=== PATIENT | female | born 1980 | race Caucasian/White ===

== ENCOUNTER → 2016-11-03 | Outpatient (REF) | payer OTHER ==
[2016-11-03 12:28] LABS: THYROID PEROXIDASE ANTIBODY 28.2 U/ML (<60.0)
[2016-11-03 12:32] LABS: ALBUMIN 3.2 GM/DL (3.2-5.2); ALBUMIN/GLOBULIN RATIO 0.82 (1.00-1.93); ALKALINE PHOSPHATASE 89 U/L (45-117); ALT/SGPT 24 U/L (12-78); ANION GAP 8 MEQ/L (8-16); AST/SGOT 21 U/L (15-37); BILIRUBIN,TOTAL 0.3 MG/DL (0.2-1.0); BLOOD UREA NITROGEN 12 MG/DL (7-18); CALCIUM LEVEL 8.4 MG/DL (8.5-10.1); CARBON DIOXIDE LEVEL 25 MEQ/L (21-32); CHLORIDE LEVEL 109 MEQ/L (98-107); CHOLESTEROL LEVEL 202 MG/DL (<200); CREATININE FOR GFR 0.83 MG/DL (0.55-1.02); GLOMERULAR FILTRATION RATE > 60.0 (>60); GLUCOSE, FASTING 89 MG/DL (70-105); POTASSIUM SERUM 4.3 MEQ/L (3.5-5.1); SODIUM LEVEL 142 MEQ/L (136-145); THYROXINE (T4) 11.5 UG/DL (4.5-12.0); TOTAL PROTEIN 7.1 GM/DL (6.4-8.2); TRIGLYCERIDES LEVEL 144 MG/DL (<150)
== END ==
LOC: M SFHCCLAY 08:12
PROVIDERS: ATTEND Family Medicine
DX: E78.2 Mixed hyperlipidemia (principal); R73.01 Impaired fasting glucose; E01.0 Iodine-deficiency related diffuse (endemic) goiter

== ENCOUNTER → 2016-11-07 | Outpatient (CLI) | payer OTHER ==
--- NOTE | 2016-11-07 16:25 | REP ---
THYROID ULTRASOUND: Real-time sonographic evaluation of the thyroid is performed. Right lobe measures 4.2 x 1.4 x 1.2 cm and left lobe 4.2 x 1.9 x 1.2 cm. There is a 2 mm cyst in the midright lobe and a 2 mm cyst in the upper left lobe. Incidental note is made of a slightly enlarged lymph node in the right side of the neck. Soft tissues, measuring 1.7 x 1.2 x 1.2 cm. There is also mildly prominent lymph node in the left soft tissues 2.2 x 1.0 x 2.0 cm. Other smaller adjacent lymph nodes are seen bilaterally. IMPRESSION: Essentially unremarkable thyroid ultrasound with no significant enlargement. Mildly prominent lymph nodes in the neck soft-tissues bilaterally. Further evaluation may be made with a CT of the soft-tissues of the neck with IV contrast if clinically indicated. Signed by Jose Padilla MD 11/07/2016 04:50 P
== END ==
LOC: M RAD 15:05
PROVIDERS: ATTEND Family Medicine
DX: E01.0 Iodine-deficiency related diffuse (endemic) goiter (principal)

== ENCOUNTER → 2018-04-08 | Outpatient (REF) | payer OTHER ==
[2018-04-09 12:18] LABS: ALBUMIN 3.2 GM/DL (3.2-5.2); ALBUMIN/GLOBULIN RATIO 0.76 (1.00-1.93); ALKALINE PHOSPHATASE 82 U/L (45-117); ALT/SGPT 19 U/L (12-78); ANION GAP 8 MEQ/L (8-16); AST/SGOT 21 U/L (7-37); BILIRUBIN,TOTAL 0.2 MG/DL (0.2-1.0); BLOOD UREA NITROGEN 11 MG/DL (7-18); CALCIUM LEVEL 9.1 MG/DL (8.5-10.1); CARBON DIOXIDE LEVEL 22 MEQ/L (21-32); CHLORIDE LEVEL 109 MEQ/L (98-107); CHOLESTEROL LEVEL 183 MG/DL (<200); CHOLESTEROL RISK RATIO 3.388 (<5); GLOMERULAR FILTRATION RATE > 60.0 (>60); GLUCOSE, FASTING 73 MG/DL (70-100); HDL CHOLESTEROL 54 MG/DL (>40); LDL CHOLESTEROL 106.6 MG/DL (<100); NON-HDL-C 129 MG/DL; SODIUM LEVEL 139 MEQ/L (136-145); TOTAL PROTEIN 7.4 GM/DL (6.4-8.2); TRIGLYCERIDES LEVEL 112 MG/DL (<150)
[2018-04-09 12:23] LABS: POTASSIUM SERUM 8.3 MEQ/L (3.5-5.1)
[2018-04-09 15:11] LABS: ESTIMATED AVERAGE GLUCOSE 108 MG/DL (60-110); HEMOGLOBIN A1c 5.4 %
== END ==
LOC: M SFHCCLAY 14:45
DX: E78.2 Mixed hyperlipidemia (principal); R73.01 Impaired fasting glucose

== ENCOUNTER → 2018-08-03 | Outpatient (REF) | payer OTHER ==
[2018-08-06 00:40] LABS: HPV HYBRID CAPTURE II Negative (Negative)
== END ==
LOC: M LAB REF 17:13
PROVIDERS: ATTEND Advanced Practice Midwife
DX: Z12.4 Encounter for screening for malignant neoplasm of cervix (principal)

== ENCOUNTER → 2019-08-31 | Outpatient (REF) | payer OTHER | LOC: M SFHCWAGY 10:27 | PROVIDERS: ATTEND Advanced Practice Midwife | DX: Z12.4 Encounter for screening for malignant neoplasm of cervix (principal) ==

== ENCOUNTER → 2019-11-29 | Outpatient (REF) | payer OTHER | LOC: M LAB REF 16:58 | PROVIDERS: ATTEND Family Medicine | DX: R19.7 Diarrhea, unspecified (principal) ==

== ENCOUNTER 2019-12-02 14:15 | Inpatient (IN) | payer OTHER ==
[~2019-12-02] VITALS: Ht 152.4 cm; Wt 79.9 kg
[2019-12-02] MEDS ORDERED: NS 1,000 ML IV ONE (14:45)
[2019-12-02] MEDS ORDERED: PIPERACILLIN/TAZOBACTAM SOD 4.5 GM in D5W MINI-BAG PLUS 50 ML IV ONE (14:45)
[2019-12-02 15:23] LABS: BASO % 0.3 % (0.0-1.0); EOS % 0.1 % (0.0-3.0); HEMATOCRIT 41.3 % (36.0-47.0); HEMOGLOBIN 13.8 g/dl (12.0-15.5); LYMPH # 1.8 10^3/uL (1.5-5.0); LYMPH % 11.5 % (24.0-44.0); MEAN CORPUSCULAR HEMOGLOBIN 28.2 pg (27.0-33.0); MEAN CORPUSCULAR HGB CONC 33.4 g/dl (32.0-36.5); MEAN CORPUSCULAR VOLUME 84.5 fl (80.0-96.0); MONO % 6.7 % (0.0-5.0); NEUTROPHILS # 12.5 10^3/uL (1.5-8.5); PLATELET COUNT, AUTOMATED 405 10^3/uL (150-450); RED BLOOD COUNT 4.89 10^6/uL (4.00-5.40); WHITE BLOOD COUNT 15.4 10^3/uL (4.0-10.0)
[2019-12-02] MEDS ORDERED: CYCL5TAB PO (15:32)
[2019-12-02] MEDS ORDERED: FLON1SPR NARES (15:32)
[2019-12-02] MEDS ORDERED: ALBU8.5H INH (15:32)
[2019-12-02] MEDS ORDERED: MONT10TA4 PO (15:32)
[2019-12-02] MEDS ORDERED: LEVOTAB18 PO (15:32)
[2019-12-02] MEDS ORDERED: ALLE180T33 PO (15:32)
[2019-12-02 15:35] LABS: INR 1.11
[2019-12-02 15:36] LABS: PARTIAL THROMBOPLASTIN TIME 28.8 SECONDS (25.0-38.4)
[2019-12-02 15:47] LABS: ALBUMIN 3.1 GM/DL (3.2-5.2); BILIRUBIN,DIRECT 0.2 MG/DL (0.0-0.2); BILIRUBIN,TOTAL 0.4 MG/DL (0.2-1.0); TOTAL PROTEIN 7.9 GM/DL (6.4-8.2)
[2019-12-02] MEDS ORDERED: NORCO, ANEXSIA 5/325MG TABLET (HYDROcodone/ACETAMINOPHEN) PO PRN (16:15)
[2019-12-02] MEDS ORDERED: ONDANSETRON 4MG/2ML VIAL (J2405 PER 1MG) IV PRN (16:15)
[2019-12-02] MEDS ORDERED: MORPHINE 2 MG/ML 1ML VIAL (J2270) IV PRN (16:15)
[2019-12-02] MEDS ORDERED: IPRATROPIUM 0.5MG/ALBUTEROL 2.5MG INH SOL UD 3ML (DUONEB)(J7620) NEB PRN (16:15)
[2019-12-02] MEDS ORDERED: ACETAMINOPHEN TAB 650MG DOSE (2X325MG) PO PRN (16:15)
[2019-12-02 17:27] VITALS: BP 140/92
[2019-12-02] MEDS: PANTOPRAZOLE 40MG VIAL (C9113 PER 1) IV SCH (17:47)
[2019-12-02] MEDS: D5W/LR 1,000 ML IV SCH (17:48)
[2019-12-02] MEDS: KETOROLAC 30 MG/ML 1ML VIAL (J1885 PER 15MG) IV SCH (17:48)
[2019-12-02] MEDS: CIPROFLOXACIN 400 MG in IV 1 EA IV SCH (17:50)
[2019-12-02] MEDS: metroNIDAZOLE 500 MG in IV 1 EA IV SCH (19:03)
[2019-12-02 22:00] VITALS: BP 131/74
[2019-12-02] MEDS: IPRATROPIUM 0.5MG/ALBUTEROL 2.5MG INH SOL UD 3ML (DUONEB)(J7620) NEB SCH (23:59)
[2019-12-03] MEDS: KETOROLAC 30 MG/ML 1ML VIAL (J1885 PER 15MG) IV SCH ×5 (00:22→18:15)
[2019-12-03] MEDS: IPRATROPIUM 0.5MG/ALBUTEROL 2.5MG INH SOL UD 3ML (DUONEB)(J7620) NEB SCH ×4 (01:28→20:00)
[2019-12-03 02:00] VITALS: BP 129/75
[2019-12-03] MEDS: metroNIDAZOLE 500 MG in IV 1 EA IV SCH ×3 (02:18→19:57)
[2019-12-03] MEDS: D5W/LR 1,000 ML IV SCH ×2 (05:37→08:50)
[2019-12-03] MEDS: CIPROFLOXACIN 400 MG in IV 1 EA IV SCH ×2 (05:37→18:14)
[2019-12-03 06:00] VITALS: BP 127/75
[2019-12-03] MEDS: PANTOPRAZOLE 40MG VIAL (C9113 PER 1) IV SCH (08:50)
[2019-12-03 09:41] LABS: HEMOGLOBIN 12.8 g/dl (12.0-15.5); MEAN CORPUSCULAR HEMOGLOBIN 28.3 pg (27.0-33.0); MEAN CORPUSCULAR HGB CONC 32.8 g/dl (32.0-36.5); MEAN CORPUSCULAR VOLUME 86.3 fl (80.0-96.0); PLATELET COUNT, AUTOMATED 366 10^3/uL (150-450); RED BLOOD COUNT 4.52 10^6/uL (4.00-5.40); WHITE BLOOD COUNT 8.7 10^3/uL (4.0-10.0)
[2019-12-03 09:58] LABS: BLOOD UREA NITROGEN 3 MG/DL (7-18); CALCIUM LEVEL 8.5 MG/DL (8.5-10.1); CARBON DIOXIDE LEVEL 29 MEQ/L (21-32); CHLORIDE LEVEL 106 MEQ/L (98-107); CREATININE FOR GFR 0.78 MG/DL (0.55-1.30); GLOMERULAR FILTRATION RATE > 60.0 (>58); GLUCOSE, FASTING 105 MG/DL (70-100); POTASSIUM SERUM 3.3 MEQ/L (3.5-5.1); SODIUM LEVEL 139 MEQ/L (136-145)
[2019-12-03 10:00] VITALS: BP 127/75
--- NOTE | 2019-12-03 13:56 | HPE ---
DATE OF ADMISSION: 12/02/2019 CHIEF COMPLAINT: Diverticulitis with question of diverticular abscess. BRIEF HISTORY OF PRESENT ILLNESS: The patient is a 39-year-old female, who has had chronic irritable bowel symptoms, has had increasing abdominal pain and diarrhea starting since about a week ago, was in to see her care provider and was ordered a CAT scan which showed a peridiverticular phlegmon/abscess. CT was evaluated here and did not reveal any abscess amenable to treatment. She had reportedly a normal white count as an outpatient. However, her white count on admission is 15.4. She is afebrile. She is not having any sepsis symptoms. No hypotension. She does not appear in any significant distress. PAST MEDICAL HISTORY: Significant for history of irritable bowel symptoms. No prior colonoscopy or upper endoscopy. History of asthma. History of environmental allergies. MEDICATIONS (include): - montelukast sodium - albuterol - Levonor - fexofenadine - fluconazole/ fructosazone/Flonase PHYSICAL EXAMINATION: Reveals a 39-year-old female, who looks stated age. HEENT is unremarkable. Neck: Supple without adenopathy. Lungs are clear to auscultation without crackles, wheezes or rhonchi. Heart is regular without murmur. Abdomen is soft, nondistended, mildly tender without any significant rebound or peritoneal signs. Extremities: Warm, well-perfused. She does have some mild left lower quadrant pain with palpation to deep palpation but no significant guarding or rebound symptoms are appreciated. No significant peritoneal signs are appreciated. IMPRESSION/PLAN: The patient has diverticulitis with an elevated white count and with evidence of peridiverticular phlegmon. At this point, it definitely does not appear to be an abscess or at least it appears to be much more a developing abscess or just a phlegmon that may resolve with antibiotic treatment alone. At this point, my recommendation is IV antibiotics, nothing by mouth overnight. We will see how she does and in the morning we may start her on some clear liquids depending on her symptoms. If she has decreasing white count, if she has decreasing pain, then I would like to start on a clear liquid diet and then we possibly may be able to advance her diet and discharge her to home over the next 24-48 hours. She understands our current plan and would like to continue with current plan at this time.
[2019-12-03 14:00] VITALS: BP 125/74
--- NOTE | 2019-12-03 14:05 | IPN ---
DATE: 12/03/2019 The patient seems to be doing well overnight. Has not had any significant pain or discomfort and overall seems to have had some bowel movements but seems a little bit more formed than it was previously. Overall feeling better than she was and at this time seems to be making some good progress. Seems much more comfortable, is not short of breath, etc., and the not complaining of any significant abdominal pain. Her temperature is very mildly above normal but no significant fever appreciated. Vital signs are stable and her white count has returned to normal. On her physical exam, abdomen soft, nontender and nondistended. IMPRESSION/PLAN: The patient has had some significant improvement with overnight antibiotics. I do feel that it is reasonable to continue with intravenous (IV) antibiotics at this time, give her a clear liquid diet and progress to a regular diet either later on today or tomorrow. If she is doing well, then discharge her home tomorrow with oral antibiotics and followup in the office. My recommendation is to have her proceed with a colonoscopy in approximately 4-6 weeks to rule out any other significant abnormality. However, obviously at this time if she has any fevers, increasing white count, pain and discomfort, we may need to proceed with a repeat CT scan.
[2019-12-03] MEDS: FEXOFENADINE 60 MG TAB PO SCH (15:26)
[2019-12-03] MEDS: FLUTICASONE PROP 0.05% NASAL SPRAY 16 GM (FLONASE) NARES SCH (15:27)
[2019-12-03] MEDS: MONTELUKAST 10 MG TAB PO SCH (15:27)
[2019-12-03 18:00] VITALS: BP 123/69
[2019-12-03] MEDS ORDERED: POTASSIUM CHLORIDE 10 MEQ SR TABLET PO ONE (19:45)
[2019-12-03 22:00] VITALS: BP 134/94
[2019-12-04] MEDS: IPRATROPIUM 0.5MG/ALBUTEROL 2.5MG INH SOL UD 3ML (DUONEB)(J7620) NEB SCH ×3 (01:29→13:11)
[2019-12-04 02:00] VITALS: BP 132/93
[2019-12-04] MEDS: metroNIDAZOLE 500 MG in IV 1 EA IV SCH (02:02)
[2019-12-04] MEDS: CIPROFLOXACIN 400 MG in IV 1 EA IV SCH (05:10)
[2019-12-04] MEDS: KETOROLAC 30 MG/ML 1ML VIAL (J1885 PER 15MG) IV SCH ×2 (05:10)
[2019-12-04 06:00] VITALS: BP 131/74
[2019-12-04 07:53] LABS: HEMATOCRIT 35.7 % (36.0-47.0); HEMOGLOBIN 11.6 g/dl (12.0-15.5); MEAN CORPUSCULAR HEMOGLOBIN 27.7 pg (27.0-33.0); MEAN CORPUSCULAR HGB CONC 32.5 g/dl (32.0-36.5); MEAN CORPUSCULAR VOLUME 85.2 fl (80.0-96.0); PLATELET COUNT, AUTOMATED 343 10^3/uL (150-450); RED BLOOD COUNT 4.19 10^6/uL (4.00-5.40); WHITE BLOOD COUNT 9.7 10^3/uL (4.0-10.0)
[2019-12-04 08:20] LABS: BLOOD UREA NITROGEN 3 MG/DL (7-18); CALCIUM LEVEL 8.1 MG/DL (8.5-10.1); CARBON DIOXIDE LEVEL 24 MEQ/L (21-32); CHLORIDE LEVEL 108 MEQ/L (98-107); CREATININE FOR GFR 0.71 MG/DL (0.55-1.30); GLOMERULAR FILTRATION RATE > 60.0 (>58); GLUCOSE, FASTING 95 MG/DL (70-100); POTASSIUM SERUM 3.8 MEQ/L (3.5-5.1); SODIUM LEVEL 138 MEQ/L (136-145)
[2019-12-04] MEDS: FLUTICASONE PROP 0.05% NASAL SPRAY 16 GM (FLONASE) NARES SCH (08:37)
[2019-12-04] MEDS: FEXOFENADINE 60 MG TAB PO SCH (08:37)
[2019-12-04] MEDS: PANTOPRAZOLE 40MG VIAL (C9113 PER 1) IV SCH (08:37)
[2019-12-04] MEDS: MONTELUKAST 10 MG TAB PO SCH (08:37)
[2019-12-04] MEDS ORDERED: CIPR500T3 PO (09:58)
[2019-12-04] MEDS ORDERED: METR-265 PO (09:58)
== END 2019-12-04 12:25 | disposition home or self-care (01) | DRG 392 ==
LOC: M ED 14:15 → M ED INP 16:04 → M MSPAV 17:36
PROVIDERS: ADMIT Surgery; ATTEND Surgery
DX: K57.30 Diverticulosis of large intestine without perforation or abscess without bleeding (principal)

== ENCOUNTER → 2019-12-20 | Outpatient (REF) | payer OTHER ==
[~2019-12-20] MED LIST: ALBU8.5H INH; ALLE180T33 PO; CIPR500T3 PO; CYCL5TAB PO; FLON1SPR NARES; LEVOTAB18 PO; METR-265 PO; MONT10TA4 PO
[2019-12-21 11:46] LABS: BASO # 0.1 10^3/uL (0.0-0.2); BASO % 0.5 % (0.0-1.0); EOS % 0.4 % (0.0-3.0); HEMATOCRIT 43.9 % (36.0-47.0); HEMOGLOBIN 14.3 g/dl (12.0-15.5); LYMPH % 18.7 % (24.0-44.0); MEAN CORPUSCULAR HGB CONC 32.6 g/dl (32.0-36.5); MEAN CORPUSCULAR VOLUME 85.9 fl (80.0-96.0); MONO # 0.6 10^3/uL (0.0-0.8); MONO % 5.9 % (0.0-5.0); NEUTROPHILS % 74.2 % (36.0-66.0); PLATELET COUNT, AUTOMATED 347 10^3/uL (150-450); RED BLOOD COUNT 5.11 10^6/uL (4.00-5.40); WHITE BLOOD COUNT 10.8 10^3/uL (4.0-10.0)
[2019-12-21 12:02] LABS: ALBUMIN 3.3 GM/DL (3.2-5.2); ALT/SGPT 252 U/L (12-78); BILIRUBIN,TOTAL 0.7 MG/DL (0.2-1.0); BLOOD UREA NITROGEN 5 MG/DL (7-18); C REACTIVE PROTEIN QUANTITATIV < 0.30 MG/DL (0.00-0.30); CARBON DIOXIDE LEVEL 26 MEQ/L (21-32); CHLORIDE LEVEL 105 MEQ/L (98-107); CREATININE FOR GFR 0.68 MG/DL (0.55-1.30); GLOMERULAR FILTRATION RATE > 60.0 (>58); GLUCOSE, FASTING 73 MG/DL (70-100); POTASSIUM SERUM 3.9 MEQ/L (3.5-5.1); SODIUM LEVEL 138 MEQ/L (136-145); TOTAL PROTEIN 7.2 GM/DL (6.4-8.2)
== END ==
LOC: M LABDRAWC 11:28
PROVIDERS: ATTEND Internal Medicine Gastroenterology
DX: R10.32 Left lower quadrant pain (principal); R19.7 Diarrhea, unspecified

== ENCOUNTER 2020-01-15 08:56 | Emergency (ER) | payer OTHER ==
[~2020-01-15] VITALS: Ht 152.4 cm; Wt 70.1 kg
[~2020-01-15 08:56] MED LIST changes: +MONT10TA10 PO; -MONT10TA4 PO; +MOTR200T44 PO; +TYLE325T5 PO
[2020-01-15] MEDS ORDERED: ISOVUE-370 76% 100ML VIAL As Ordered ONE (09:58)
[2020-01-15 10:01] LABS: BASO % 0.2 % (0.0-1.0); HEMATOCRIT 42.1 % (36.0-47.0); HEMOGLOBIN 13.6 g/dl (12.0-15.5); LYMPH % 11.9 % (24.0-44.0); MEAN CORPUSCULAR HEMOGLOBIN 27.5 pg (27.0-33.0); MEAN CORPUSCULAR HGB CONC 32.3 g/dl (32.0-36.5); MEAN CORPUSCULAR VOLUME 85.1 fl (80.0-96.0); MONO # 0.4 10^3/uL (0.0-0.8); MONO % 5.3 % (0.0-5.0); NEUTROPHILS # 6.9 10^3/uL (1.5-8.5); NEUTROPHILS % 82.2 % (36.0-66.0); PLATELET COUNT, AUTOMATED 229 10^3/uL (150-450); RED BLOOD COUNT 4.95 10^6/uL (4.00-5.40); WHITE BLOOD COUNT 8.4 10^3/uL (4.0-10.0)
[2020-01-15 10:26] LABS: ALBUMIN 3.2 GM/DL (3.2-5.2); ALT/SGPT 483 U/L (12-78); BILIRUBIN,DIRECT < 0.1 MG/DL (0.0-0.2); BILIRUBIN,TOTAL 0.9 MG/DL (0.2-1.0); LIPASE 102 U/L (73-393)
[2020-01-15 11:23] LABS: BLOOD UREA NITROGEN 3 MG/DL (7-18); CALCIUM LEVEL 8.7 MG/DL (8.5-10.1); CARBON DIOXIDE LEVEL 22 MEQ/L (21-32); CHLORIDE LEVEL 104 MEQ/L (98-107); CREATININE FOR GFR 0.64 MG/DL (0.55-1.30); GLOMERULAR FILTRATION RATE > 60.0 (>58); GLUCOSE, FASTING 73 MG/DL (70-100); POTASSIUM SERUM 3.6 MEQ/L (3.5-5.1); SODIUM LEVEL 135 MEQ/L (136-145)
--- NOTE | 2020-01-15 11:41 | REP ---
CT ABDOMEN AND PELVIS WITH IV CONTRAST: TECHNIQUE: Axial contrast-enhanced images from the lung bases to the pubic symphysis using 100 mL Isovue-370 intravenous contrast material with multiplanar reformations. Visualized lung bases are clear. Small cyst is seen in the right lobe of the liver laterally. Gallbladder is grossly unremarkable. Spleen is normal in size with no intrinsic abnormality. The adrenal glands are normal. Pancreas demonstrates no mass or evidence of pancreatic duct dilatation. There is no biliary dilatation. Kidneys appear normal. There is no hydronephrosis. There is no abdominal aortic aneurysm. Subcentimeter periaortic lymph nodes are present. There is no significant adenopathy. No free air is seen. The appendix is normal. Multiple sigmoid diverticula are present. There is thickening of the sigmoid colon with surrounding streaky inflammation in the pericolonic fat, consistent with diverticulitis. The adjacent left ovary is enlarged measuring about 5.8 cm in length. Along the medial aspect of the right ovary, there are ill-defined calcifications. Two small cystic structures demonstrate calcified wiseman, the larger of the two measures 2.1 cm in diameter. These probably represent old postinflammatory changes of the left ovary. However, in the anterior-superior aspect of the left ovary, there is an oval cystic area which is somewhat curvilinear. It measures 2 cm in maximum diameter. This could represent a small tubo-ovarian abscess. Uterus is midline and normal in size. The urinary bladder is collapsed and not evaluated. IMPRESSION: Sigmoid diverticulitis. There appear to be inflammatory changes of the adjacent left ovary. The left ovary is enlarged. There are ill-defined calcifications and two small calcified cystic areas in the medial left ovary, likely representing old postinflammatory changes of the left ovary. In the anterior-superior left ovary, there is a curvilinear cystic area 2 cm in maximum diameter. This could possibly represent an acute tubo-ovarian abscess. Electronically Signed by Jose Padilla MD 01/15/2020 12:28 P
[2020-01-15] MEDS ORDERED: cefoTEtan DISODIUM 2 GM in D5W MINI-BAG PLUS 50 ML IV ONE (13:15)
[2020-01-15 13:17] LABS: C REACTIVE PROTEIN QUANTITATIV 4.15 MG/DL (0.00-0.30)
[2020-01-15 13:36] LABS: ERYTHROCYTE SEDIMENTATION RATE 47 mm/hr (0-20)
[2020-01-15] MEDS ORDERED: CLIN150C15 PO (14:44)
[2020-01-15] MEDS ORDERED: FLAG500T PO (14:44)
[2020-01-15 15:14] VITALS: BP 125/69
[2020-01-17 09:41] LABS: CA 125 5.2 U/ML (<30.2)
[2020-01-17 14:08] LABS: HE4 53.5 pmol/L (0.0-63.6)
== END 2020-01-15 15:16 | disposition home or self-care (01) ==
LOC: M ED 08:56
DX: K57.92 Diverticulitis of intestine, part unspecified, without perforation or abscess without bleeding (principal); N70.92 Oophoritis, unspecified; N83.202 Unspecified ovarian cyst, left side; R74.0 Nonspecific elevation of levels of transaminase and lactic acid dehydrogenase [LDH]; J45.909 Unspecified asthma, uncomplicated; K58.9 Irritable bowel syndrome, unspecified; Z79.899 Other long term (current) drug therapy; Z79.3 Long term (current) use of hormonal contraceptives
CPT/HCPCS: 74177; 80047; 80048; 80076; 81001; 82378; 83690; 84702; 85025; 85652; 86140; 86304; 86305; 87040; 87086; 87507; 96365; 99284; Q9967

== ENCOUNTER → 2020-01-23 | Outpatient (CLI) | payer OTHER ==
[~2020-01-23] MED LIST changes: +CLIN150C14 PO; +FLAG500T PO; -MONT10TA10 PO; +MONT10TA4 PO; -MOTR200T44 PO; -TYLE325T5 PO
--- NOTE | 2020-01-24 09:18 | REP ---
Clinical: History of tubo-ovarian abscess. Technique: Transabdominal pelvic ultrasound followed by transvaginal examination for better evaluation of the endometrium and adnexa with color Doppler evaluation of the ovaries. Comparison: None. Findings: Bladder is unremarkable and measures approximately 8.2 x 6.4 x 8.4 cm. Normal anteverted uterus measures 7.3 x 3.1 x 4.1 cm. Endometrial complex measures 5 mm thickness. No discrete uterine or endometrial abnormalities appreciated. The right ovary is normal in appearance and vascularity measuring 2.2 x 1.1 x 1.3 cm (RI 0.48). Complex vascular soft tissue area with in the left adnexa measures roughly 5.5 x 3.9 x 3.0 cm with small amount of adjacent fluid is nonspecific in its appearance and may represent changes related to the tubal ovarian abscess at as per history including possible phlegmon/forming abscess. The left ovary cannot definitively be identified. Impression: 1. Complex vascular soft tissue area in the left adnexa may represent changes related to tubo-ovarian abscess including phlegmon and are comparable to the findings on recent CT dated 01/15/2020. 2. Normal uterus and right ovary.
== END ==
LOC: M WHC 10:11
PROVIDERS: ATTEND Obstetrics & Gynecology
DX: N70.93 Salpingitis and oophoritis, unspecified (principal)

== ENCOUNTER → 2020-01-27 | Outpatient (REF) | payer OTHER ==
[2020-01-27 16:23] LABS: BASO % 0.7 % (0.0-1.0); EOS # 0.1 10^3/uL (0.0-0.5); EOS % 1.1 % (0.0-3.0); HEMATOCRIT 41.3 % (36.0-47.0); HEMOGLOBIN 13.2 g/dl (12.0-15.5); LYMPH # 1.4 10^3/uL (1.5-5.0); LYMPH % 23.5 % (24.0-44.0); MEAN CORPUSCULAR HEMOGLOBIN 27.5 pg (27.0-33.0); MONO # 0.6 10^3/uL (0.0-0.8); NEUTROPHILS % 65.5 % (36.0-66.0); PLATELET COUNT, AUTOMATED 336 10^3/uL (150-450); WHITE BLOOD COUNT 6.1 10^3/uL (4.0-10.0)
[2020-01-27 16:27] LABS: ALBUMIN 3.1 GM/DL (3.2-5.2); ALT/SGPT 153 U/L (12-78); BILIRUBIN,TOTAL 0.4 MG/DL (0.2-1.0); BLOOD UREA NITROGEN 3 MG/DL (7-18); CALCIUM LEVEL 8.9 MG/DL (8.5-10.1); CARBON DIOXIDE LEVEL 27 MEQ/L (21-32); CHLORIDE LEVEL 105 MEQ/L (98-107); CREATININE FOR GFR 0.84 MG/DL (0.55-1.30); GLOMERULAR FILTRATION RATE > 60.0 (>58); GLUCOSE, FASTING 107 MG/DL (70-100); POTASSIUM SERUM 3.4 MEQ/L (3.5-5.1); SODIUM LEVEL 140 MEQ/L (136-145); TOTAL PROTEIN 7.2 GM/DL (6.4-8.2)
== END ==
LOC: M LABDRAWC 16:01
DX: R74.8 Abnormal levels of other serum enzymes (principal); K57.30 Diverticulosis of large intestine without perforation or abscess without bleeding; K57.32 Diverticulitis of large intestine without perforation or abscess without bleeding

== ENCOUNTER → 2020-08-01 | Outpatient (CLI) | payer OTHER ==
[~2020-08-01] MED LIST changes: -MONT10TA4 PO; +MONT5TAB2 PO; +MOTR200T44 PO; +TYLE325T5 PO
--- NOTE | 2020-08-01 15:24 | REP ---
INDICATION: N83.202 LT OVARIAN CYST. COMPARISON: Comparison study January 23, 2020.. TECHNIQUE: Transabdominal and transvaginal scanning were performed. FINDINGS: Uterine dimensions are normal at 7.1 x 3.0 x 3.6 cm. Endometrial echo is 0.4 cm thick and centrally placed. No free fluid is seen in the cul-de-sac. Visualized bladder wiseman are smooth. Uterine fundal myometrium is somewhat heterogeneous. Bladder wiseman are smooth. Bladder is less than optimally filled. The right ovary has dimensions of 2.1 x 0.8 x 1.9 cm. Cm. It's Doppler flow is normal with a resistive index of 0.3. The left ovary dimensions are normal as well at 2.0 x 1.5 x 1.5 cm. It's Doppler flow was normal with resistive index of 0.68. There is no evidence of left adnexal mass or cystic lesion. This has resolved since the prior study. IMPRESSION: No significant abnormality. Previously noted left adnexal process is no longer apparent.. <Electronically signed by Blake Tucker > 08/01/20 [id number]
== END ==
LOC: M WHC 13:03
PROVIDERS: ATTEND Obstetrics & Gynecology
DX: N83.202 Unspecified ovarian cyst, left side (principal)

== ENCOUNTER → 2021-03-21 | Outpatient (REF) | payer OTHER ==
[~2021-03-21] MED LIST changes: -CLIN150C14 PO; +CLIN150C15 PO; +MONT10TA10 PO; -MONT5TAB2 PO
== END ==
LOC: M SFHCWAGY 17:25
PROVIDERS: ATTEND Advanced Practice Midwife
DX: Z12.4 Encounter for screening for malignant neoplasm of cervix (principal); Z01.419 Encounter for gynecological examination (general) (routine) without abnormal findings; Z77.9 Other contact with and (suspected) exposures hazardous to health